=== PATIENT | female | born 1950 | race Caucasian/White ===

== ENCOUNTER → 2017-09-10 | Outpatient (CLI) | payer OTHER ==
[~2017-09-10] MED LIST: ARTTEAOPSO BOTHEYES; CHOL10002 PO; CVS EYE OP; HYDR1TAB94 PO; LAVAP17G PO; MAGNESIUM SUPPLEMENT PO; MULTIVITAMIN PO; TURMERIC PO; Vitamin B Comple1 EA PO; Vitamin D400 UNI1 PO; [UNRECOGNIZED DRUG - OTHER] PO; [UNRECOGNIZED DRUG - OTHER] PO; [UNRECOGNIZED DRUG - OTHER] PO
[2017-09-11 11:44] LABS: HPV Genotype 16 Not Detected (NOTDET); HPV Genotype 18 Not Detected (NOTDET)
[2017-09-17 12:10] LABS: HPV High Risk Other Not Detected (NOTDET)
== END | disposition home or self-care (01) ==
LOC: OLS 11:43
PROVIDERS: Obstetrics & Gynecology Gynecology
DX: Z12.72 Encounter for screening for malignant neoplasm of vagina (principal)
CPT/HCPCS: 87624; G0123

== ENCOUNTER → 2018-09-19 | Outpatient (CLI) | payer MEDICARE ==
[2018-09-24 12:07] LABS: HPV 16 Negative (Negative); HPV 18 Negative (Negative); HPV OTHER HR TYPES Negative (Negative)
== END | disposition home or self-care (01) ==
LOC: LAB 09:16 → LAB SHORT 09:16
PROVIDERS: Obstetrics & Gynecology Gynecology
DX: Z12.72 Encounter for screening for malignant neoplasm of vagina (principal)
CPT/HCPCS: 87624; G0123

== ENCOUNTER 2019-05-19 06:48 | Day surgery (SDC) | payer MEDICARE ==
[~2019-05-19] VITALS: Ht 165.1 cm; Wt 61.0 kg
[~2019-05-19 06:48] MED LIST changes: +ACET500 PO; +IBUPROFEN PO; +TYMLOS1.56 ML INJ; +Ultram50 MG PO
--- NOTE | 2019-05-19 10:43 | NUR ---
DR CHIN IN ROOM DISCUSSING PLAN OF CARE WITH PATIENT AND S/O. R FEMORAL VEIN/ARTERY REMAINS CLEAR. NO BLEEDING OR HEMATOMA NOTED. VSS. CALL LIGHT WITHIN REACH.
--- NOTE | 2019-05-19 12:16 | NUR ---
P VERBALIZES UNDERSTANDING WRITTEN AND VERBAL ORDERS. PT SITE REMAINS CLEAR. CALL LIGHT WITHIN REACH. S/O AT BEDSIDE
--- NOTE | 2019-05-19 13:13 | NUR ---
PT AMBULATES TO RESTROOM AND BACK WITHOUT DIFF. VSS. NADN. PT DRESSES SELF WITHOUT DIFF.
--- NOTE | 2019-05-19 13:18 | NUR ---
PT ESCORTED OUT BY LAUREN R FEM SITE REMAINS CLEAR.
== END 2019-05-19 13:25 | disposition home or self-care (01) ==
LOC: MHTC 06:48
DX: I87.2 Venous insufficiency (chronic) (peripheral) (principal); I83.92 Asymptomatic varicose veins of left lower extremity; Z88.2 Allergy status to sulfonamides; Z87.891 Personal history of nicotine dependence; Z88.6 Allergy status to analgesic agent
CPT/HCPCS: 36011; 36012; 37241; 75625; 75716; 75736; 75820; 75831; 99152; 99153; C1760; C1769; C1887; C1894; J0690; J1644; J2250; J3010; J7030; Q9967

== ENCOUNTER → 2020-09-27 | Outpatient (CLI) | payer MEDICARE | END | disposition home or self-care (01) | LOC: LAB SHORT 11:51 → LAB 11:51 | DX: N76.0 Acute vaginitis (principal) | CPT/HCPCS: 87070; 87077; 87186; 87205 ==

== ENCOUNTER → 2020-10-28 | Outpatient (CLI) | payer MEDICARE | END | disposition home or self-care (01) | LOC: LAB 08:55 → LAB SHORT 08:55 | DX: R30.9 Painful micturition, unspecified (principal) | CPT/HCPCS: 87077; 87086; 87186 ==

== ENCOUNTER → 2024-12-01 | Outpatient (CLI) | payer OTHER | LOC: LAB SHORT 14:20 → LAB 14:20 | DX: R39.9 Unspecified symptoms and signs involving the genitourinary system (principal) | CPT/HCPCS: 87086 ==

== ENCOUNTER → 2025-06-29 | Outpatient (CLI) | payer OTHER | END | disposition home or self-care (01) | LOC: LAB 08:16 → LAB SHORT 08:16 | DX: N39.0 Urinary tract infection, site not specified (principal) | CPT/HCPCS: 87077; 87086; 87186 ==